=== PATIENT | female | born 2000 | race Two or more races ===

== ENCOUNTER 2024-03-22 22:28 | Emergency (ER) | payer OTHER ==
[~2024-03-22] VITALS: Ht 162.6 cm; Wt 65.8 kg
[2024-03-22] MEDS ORDERED: DEXAMETHASONE SODIUM PHOSPHATE 4 MG/ML VIAL IM ONE (23:45)
[2024-03-22] MEDS ORDERED: hydrOXYzine HCL 25 MG TABLET PO ONE (23:45)
== END 2024-03-23 | disposition home or self-care (01) ==
LOC: ER 22:30
DX: T78.40XA Allergy, unspecified, initial encounter (principal); R21 Rash and other nonspecific skin eruption

== ENCOUNTER 2024-04-02 14:04 | Emergency (ER) | payer OTHER ==
[~2024-04-02] VITALS: Ht 149.9 cm; Wt 74.4 kg
[2024-04-02] MEDS ORDERED: DIPHENHYDRAMINE HCL 50 MG/ML VIAL 1ML IM STA (17:01)
[2024-04-02] MEDS ORDERED: XYZAL5 MG PO (17:09)
[2024-04-02] MEDS ORDERED: PERMETHRIN60 GM TOP (17:09)
[2024-04-02] MEDS ORDERED: BETAMETHASONE V15 GM TOP (17:15)
== END 2024-04-02 17:46 | disposition home or self-care (01) ==
LOC: ER 14:06
DX: T14.8XXA Other injury of unspecified body region, initial encounter (principal); W57.XXXA Bitten or stung by nonvenomous insect and other nonvenomous arthropods, initial encounter; Y93.89 Activity, other specified; Y92.89 Other specified places as the place of occurrence of the external cause; Y99.9 Unspecified external cause status

== ENCOUNTER → 2025-03-28 | Emergency (ER) | payer OTHER ==
[~2025-03-28] VITALS: Ht 149.9 cm; Wt 81.6 kg
[~2025-03-28] MED LIST: BETAMETHASONE V15 GM TOP; PERMETHRIN60 GM TOP; XYZAL5 MG PO
== END | disposition left against medical advice (07) ==
LOC: ER 22:00
DX: Z53.21 Procedure and treatment not carried out due to patient leaving prior to being seen by health care provider (principal)